=== PATIENT | male | born 1955 | race Caucasian/White ===

== ENCOUNTER 2020-04-27 12:26 | Observation (INO) ==
[2020-04-27] MEDS ORDERED: cefTRIAXone 1,000 MG VIAL ONE (13:53)
[2020-04-27] MEDS ORDERED: SODIUM CHLORIDE 0.9% 1,000 ML IV STA (14:23)
[2020-04-27] MEDS ORDERED: ONDANSETRON 4 MG/2 ML VIAL ONE (14:34)
[2020-04-27] MEDS ORDERED: ONDANSETRON 4 MG/2 ML VIAL IM STA (14:47)
[2020-04-27 14:59] LABS: Apearance,Urine CLOUDY (Clear); Bilirubin,Urine Negative (Negative); Blood, Urine Small mg/dL (Negative); Glucose,Urine (UA) Negative (Negative); Ketones,Urine 5 mg/dL (Negative); Mucus,Urine Occasional /LPF (Occasional); Nitrite,Urine Negative (Negative); Protein,Urine Negative; RBC,Urine 11 /HPF (0-4); Squamous Epithelial Cell,Urine Occasional /HPF (0-10); Urine Color Yellow (Yellow); Urine Specific Gravity 1.015 (1.001-1.035); Urine Urobilinogen < 2.0 EU/DL (0.2-1.0); WBC,Urine 2 /HPF (0-6)
[2020-04-27 15:16] LABS: Barbiturates Screen,Urine Negative (Negative); Benzodiazepines Screen,Urine Negative (Negative); Cannabinoid Screen,Urine Negative (Negative); Opiate Screen,Urine Negative (Negative); Phencyclidine Screen,Urine Negative (Negative)
[2020-04-27 16:06] LABS: Basophils % 0.3 % (0.0-0.8); Eosinophils # 0.3 10*3/uL (0.0-0.87); Hematocrit 38.7 VOL% (42.0-52.0); Hemoglobin 13.3 GM/DL (14.0-18.0); Immature Granulocytes % 0.4 %; Immature Granulocytes Absolute 0.04 #; Lymphocytes # 1.7 10*3/uL (1.4-4.0); Mean Corpuscular HGB Conc 34.4 GM/DL (32-36); Mean Corpuscular Volume 85.4 FL (87-102); Mean Platelet Volume 9.4 FL (9.6-12.0); Monocytes % 7.5 % (1.7-12.7); Neutrophils % 71.8 % (38.7-73.9); Platelet Count 338 T/CUMM (130-400); Red Blood Count 4.53 MC/CUMM (3.8-5.5); Red Cell Distribution Width 14.2 % (9.3-17.3); White Blood Count 9.7 T/CUMM (4-12)
[2020-04-27 16:33] LABS: Alanine Aminotransferase 20 U/L (16-61); Albumin 3.4 G/DL (3.4-5.0); Alkaline Phosphatase 121 U/L (45-117); Aspartate Amino Transferase 11 U/L (0-37); Bilirubin,Total < 0.39 MG/DL (0.2-1.0); Blood Urea Nitrogen 6 MG/DL (7-18); Calcium 8.5 MG/DL (8.5-10.1); Estimated Glom Filtration Rate 129 ML/MIN; Glucose 83 MG/DL (74-106); Osmolality,Calculated 247.5 MOS/KG (273-304); Total Protein 7.1 G/DL (6.4-8.3); Troponin I < 0.015 NG/ML (0.00-0.045)
[2020-04-27] MEDS ORDERED: GLUCAGON 1 MG VIAL IM PRN (17:00)
[2020-04-27] MEDS ORDERED: KETOROLAC 30 MG/1 ML VIAL IV STA (17:00)
[2020-04-27] MEDS ORDERED: HydrOXYzine PAMOATE 25 MG CAPSULE PO STA (17:00)
[2020-04-27] MEDS ORDERED: ENOXAPARIN 40 MG/0.4 ML SYRINGE SUBCUT SCH (17:00)
[2020-04-27] MEDS ORDERED: DEXTROSE 50% 25 GM/50 ML VIAL IV PRN (17:00)
[2020-04-27] MEDS ORDERED: ACETAMINOPHEN 325 MG TABLET PO PRN (17:00)
[2020-04-27] MEDS ORDERED: ASPIRIN EC 325 MG TABLET PO ONE (17:07)
[2020-04-27] MEDS: ONDANSETRON 4 MG/2 ML VIAL IV PRN (17:23)
[2020-04-27] MEDS ORDERED: MAGNESIUM SULF RIDER 4 GM in PREMIX 1 EACH IV PRN (17:31)
[2020-04-27] MEDS ORDERED: MORPHINE 4 MG/1 ML VIAL IV PRN (17:31)
[2020-04-27] MEDS ORDERED: MAGNESIUM SULF RIDER 2 GM in PREMIX 1 EACH IV PRN (17:31)
[2020-04-27] MEDS ORDERED: hydrALAZINE 20 MG/1 ML VIAL IV PRN (17:38)
[2020-04-27] MEDS ORDERED: HydrOXYzine PAMOATE 50 MG CAPSULE PO SCH (21:00)
[2020-04-27] MEDS ORDERED: traZODone 50 MG TABLET PO SCH (21:00)
[2020-04-27] MEDS: lisinopriL 10 MG TABLET PO SCH (21:56)
[2020-04-27] MEDS: SODIUM CHLORIDE 0.9% 1,000 ML IV SCH (21:57)
[2020-04-27] MEDS: carvediloL 6.25 MG TABLET PO SCH (21:57)
[2020-04-28 04:45] LABS: Basophils % 0.5 % (0.0-0.8); Eosinophils # 0.3 10*3/uL (0.0-0.87); Eosinophils % 3.5 % (0.00-10.9); Hematocrit 37.8 VOL% (42.0-52.0); Hemoglobin 12.5 GM/DL (14.0-18.0); Immature Granulocytes % 0.6 %; Immature Granulocytes Absolute 0.05 #; Lymphocytes # 2.4 10*3/uL (1.4-4.0); Lymphocytes % 30.2 % (21.2-54.2); Mean Corpuscular HGB Conc 33.1 GM/DL (32-36); Mean Corpuscular Volume 88.3 FL (87-102); Mean Platelet Volume 9.2 FL (9.6-12.0); Monocytes % 8.1 % (1.7-12.7); Neutrophils % 57.1 % (38.7-73.9); Platelet Count 319 T/CUMM (130-400); Red Blood Count 4.28 MC/CUMM (3.8-5.5); Red Cell Distribution Width 14.4 % (9.3-17.3); White Blood Count 7.8 T/CUMM (4-12)
[2020-04-28 05:10] LABS: Calcium 8.5 MG/DL (8.5-10.1); Osmolality,Calculated 255.8 MOS/KG (273-304); Risk Ratio 2.54
[2020-04-28] MEDS: lisinopriL 10 MG TABLET PO SCH (08:59)
[2020-04-28] MEDS: carvediloL 6.25 MG TABLET PO SCH (08:59)
[2020-04-28] MEDS ORDERED: PANTOPRAZOLE 40 MG VIAL IV SCH (09:00)
[2020-04-28] MEDS: ONDANSETRON 4 MG/2 ML VIAL IV PRN (09:04)
[2020-04-28] MEDS: SODIUM CHLORIDE 0.9% 1,000 ML IV SCH ×2 (09:13→09:21)
[2020-04-28] MEDS ORDERED: SODIUM CHLORIDE 1 GM TABLET PO ONE (10:26)
[2020-04-28 11:54] VITALS: BP 157/67
== END 2020-04-28 13:19 | disposition home or self-care (01) ==
LOC: N.EDINP 12:26 → N.ED 12:26 → N.TELES 19:30
PROVIDERS: ADMIT Hospitalist; ATTEND Hospitalist

== ENCOUNTER 2020-04-29 19:22 | Inpatient (IN) ==
[2020-04-29] MEDS ORDERED: SODIUM CHLORIDE 0.9% 500 ML IV STA (19:41)
[2020-04-29 21:07] LABS: Apearance,Urine CLEAR (Clear); Bacteria,Urine Occasional /HPF (Few); Bilirubin,Urine Negative (Negative); Blood, Urine Moderate mg/dL (Negative); Glucose,Urine (UA) Negative (Negative); Ketones,Urine Negative (Negative); Nitrite,Urine Negative (Negative); Protein,Urine 30 MG/DL; RBC,Urine 2 /HPF (0-4); Squamous Epithelial Cell,Urine Occasional /HPF (0-10); Urine Color Straw (Yellow); Urine Specific Gravity 1.014 (1.001-1.035); Urine Urobilinogen < 2.0 EU/DL (0.2-1.0); WBC,Urine 4 /HPF (0-6)
[2020-04-29 21:11] LABS: Barbiturates Screen,Urine Negative (Negative); Benzodiazepines Screen,Urine Negative (Negative); Cannabinoid Screen,Urine Negative (Negative); Opiate Screen,Urine Negative (Negative); Phencyclidine Screen,Urine Negative (Negative)
[2020-04-29 21:20] LABS: Basophils # 0.1 10*3/uL (0.0-0.2); Basophils % 0.4 % (0.0-0.8); Eosinophils # 0.1 10*3/uL (0.0-0.87); Eosinophils % 0.7 % (0.00-10.9); Hematocrit 36.2 VOL% (42.0-52.0); Hemoglobin 12.7 GM/DL (14.0-18.0); Immature Granulocytes % 0.6 %; Immature Granulocytes Absolute 0.08 #; Lymphocytes # 1.2 10*3/uL (1.4-4.0); Lymphocytes % 8.7 % (21.2-54.2); Mean Corpuscular HGB Conc 35.1 GM/DL (32-36); Mean Corpuscular Volume 85.2 FL (87-102); Mean Platelet Volume 9.1 FL (9.6-12.0); Monocytes % 8.6 % (1.7-12.7); Platelet Count 343 T/CUMM (130-400); Red Blood Count 4.25 MC/CUMM (3.8-5.5); Red Cell Distribution Width 14.2 % (9.3-17.3); White Blood Count 13.7 T/CUMM (4-12)
[2020-04-29 21:29] LABS: PT Patient Result 10.5 SECS (9.8-11.9)
[2020-04-29 21:48] LABS: Prolactin 5.6 NG/ML
[2020-04-29 21:54] LABS: Alanine Aminotransferase 20 U/L (16-61); Albumin 3.2 G/DL (3.4-5.0); Alkaline Phosphatase 113 U/L (45-117); Aspartate Amino Transferase 11 U/L (0-37); Bilirubin,Total < 0.39 MG/DL (0.2-1.0); Blood Urea Nitrogen 10 MG/DL (7-18); Calcium 8.2 MG/DL (8.5-10.1); Estimated Glom Filtration Rate 113 ML/MIN; Glucose 116 MG/DL (74-106); Osmolality,Calculated 252.4 MOS/KG (273-304); Total Protein 6.7 G/DL (6.4-8.3); Troponin I < 0.015 NG/ML (0.00-0.045)
[2020-04-29] MEDS ORDERED: SODIUM CHLORIDE 0.9% 2,000 ML IV ONE (23:08)
[2020-04-29] MEDS ORDERED: DOCUSATE SODIUM 100 MG CAPSULE PO PRN (23:18)
[2020-04-29] MEDS ORDERED: ACETAMINOPHEN 325 MG TABLET PO PRN (23:18)
[2020-04-29] MEDS ORDERED: guaiFENesin/DM ER 600-30 MG TABLET PO PRN (23:18)
[2020-04-29] MEDS ORDERED: diphenhydrAMINE CAP 25 MG CAPSULE PO PRN (23:18)
[2020-04-29] MEDS ORDERED: NICOTINE 21 MG/24 HR PATCH TRANSDERM PRN (23:18)
[2020-04-29] MEDS ORDERED: GLUCAGON 1 MG VIAL IM PRN (23:18)
[2020-04-29] MEDS ORDERED: hydrALAZINE 20 MG/1 ML VIAL IV PRN (23:18)
[2020-04-29] MEDS ORDERED: MORPHINE 4 MG/1 ML VIAL IV PRN (23:18)
[2020-04-29] MEDS ORDERED: ZALEPLON 5 MG CAPSULE PO PRN (23:18)
[2020-04-29] MEDS ORDERED: DEXTROSE 50% 25 GM/50 ML VIAL IV PRN (23:18)
[2020-04-29] MEDS ORDERED: SODIUM CHLORIDE 0.9% 1,000 ML IV SCH (23:30)
[2020-04-29] MEDS ORDERED: PIPERACILLIN/TAZOBACTAM 4,500 MG in SODIUM CHLORIDE 0.9% 100 ML IV SCH (23:30)
[2020-04-30] MEDS: PIPERACILLIN/TAZOBACTAM 3,375 MG in SODIUM CHLORIDE 0.9% 100 ML IV SCH ×2 (00:26→08:42)
[2020-04-30] MEDS: ONDANSETRON 4 MG/2 ML VIAL IV PRN ×2 (00:26→08:55)
[2020-04-30 02:07] LABS: Basophils # 0.1 10*3/uL (0.0-0.2); Basophils % 0.4 % (0.0-0.8); Eosinophils # 0.2 10*3/uL (0.0-0.87); Eosinophils % 2.1 % (0.00-10.9); Hematocrit 34.9 VOL% (42.0-52.0); Hemoglobin 12.5 GM/DL (14.0-18.0); Immature Granulocytes % 0.5 %; Immature Granulocytes Absolute 0.06 #; Lymphocytes # 2.2 10*3/uL (1.4-4.0); Lymphocytes % 19.8 % (21.2-54.2); Mean Corpuscular HGB Conc 35.8 GM/DL (32-36); Mean Corpuscular Volume 83.5 FL (87-102); Mean Platelet Volume 8.9 FL (9.6-12.0); Monocytes % 11.5 % (1.7-12.7); Neutrophils % 65.7 % (38.7-73.9); Platelet Count 325 T/CUMM (130-400); Red Blood Count 4.18 MC/CUMM (3.8-5.5); White Blood Count 11.2 T/CUMM (4-12)
[2020-04-30 02:27] LABS: Alanine Aminotransferase 18 U/L (16-61); Albumin 3.2 G/DL (3.4-5.0); Alkaline Phosphatase 108 U/L (45-117); Aspartate Amino Transferase 9 U/L (0-37); Bilirubin,Total < 0.39 MG/DL (0.2-1.0); Blood Urea Nitrogen 8 MG/DL (7-18); Calcium 8.6 MG/DL (8.5-10.1); Estimated Glom Filtration Rate 133 ML/MIN; Glucose 95 MG/DL (74-106); Osmolality,Calculated 252.2 MOS/KG (273-304); Total Protein 6.4 G/DL (6.4-8.3)
[2020-04-30] MEDS ORDERED: VANCOMYCIN INJ 1,250 MG in SODIUM CHLORIDE 0.9% 250 ML IV SCH (05:00)
[2020-04-30] MEDS: POTASSIUM CHLORIDE 20 MEQ TABLET PO SCH ×2 (08:54→11:30)
[2020-04-30] MEDS ORDERED: carvediloL 6.25 MG TABLET PO SCH (09:00)
[2020-04-30] MEDS ORDERED: ENOXAPARIN 40 MG/0.4 ML SYRINGE SUBCUT SCH (09:00)
[2020-04-30] MEDS ORDERED: PANTOPRAZOLE 40 MG TABLET PO SCH (09:00)
[2020-04-30] MEDS ORDERED: lisinopriL 10 MG TABLET PO SCH (09:00)
[2020-04-30] MEDS ORDERED: SODIUM CHLORIDE 0.9% 1,000 ML IV SCH (11:00)
[2020-04-30 12:02] VITALS: BP 149/72
== END 2020-04-30 14:36 | disposition home or self-care (01) | DRG 312 ==
LOC: EDBD → EDUNIT# → N.ED 19:22 → SUATTDRO 23:18 → N.EDINP 23:18 → N.TELEN 04-30 01:40
PROVIDERS: ADMIT Internal Medicine; ATTEND Internal Medicine